=== PATIENT | female | born 1995 | race Caucasian/White ===

== ENCOUNTER 2023-09-14 15:15 | Emergency (ER) | payer MEDICAID ==
[~2023-09-14] VITALS: Ht 157.5 cm; Wt 61.2 kg
[2023-09-14 15:43] VITALS: BP_SYST 110; PULSE 93; RESP 18; TEMP 97.9; O2SAT 98
[2023-09-14] MEDS ORDERED: IBUP-1969 PO (17:28)
[2023-09-14] MEDS ORDERED: DOXY100T2 PO (17:28)
[2023-09-14 18:05] VITALS: BP_SYST 116; PULSE 70; RESP 20; TEMP 98; O2SAT 98
== END 2023-09-14 18:05 | disposition home or self-care (01) ==
LOC: SED 15:15
DX: N76.0 Acute vaginitis (principal); J45.909 Unspecified asthma, uncomplicated; Z79.899 Other long term (current) drug therapy
CPT/HCPCS: 36415; 81025; 87491; 99283